=== PATIENT | male | born 1945 | race Caucasian/White ===

== ENCOUNTER → 2016-10-29 | Day surgery (SDC) | payer OTHER ==
[~2016-10-29] VITALS: Ht 180.3 cm; Wt 77.0 kg
[~2016-10-29] MED LIST: 0.9% Sodium Chloride 1,000 ML IV PRN; ASPI-973 PO; BUPR100T8 PO; LISI10TA PO; OMEP40CA36 PO; SIMV20TA4 PO; Sodium Chloride LOK Flush 10 mL Syringe IV PRN; fentaNYL-PF 50 mCg/mL 2 mL Inj IVPUSH PRN
[2016-10-29 08:22] VITALS: BP 148/98; PULSE 91; RESP 14; O2SAT 100
[2016-10-29 09:41] VITALS: BP 119/77; PULSE 60; RESP 16; O2SAT 93
[2016-10-29 09:51] VITALS: BP 128/76; PULSE 71; RESP 16; O2SAT 95
[2016-10-29 10:20] VITALS: BP 121/83; PULSE 59; RESP 16; O2SAT 97
--- NOTE | 2016-10-29 10:34 | ENDO ---
[address] [address] ENDOSCOPY PROCEDURE PATIENT: MARCO BAILEY : 1945 MR#: [id number] ADMIT: 10/29/2016 JOB ID: [id number] DATE OF SERVICE: 10/29/2016 PROCEDURE PERFORMED: Esophagogastroduodenoscopy. INDICATION: GERD and chest pain. ASA CLASSIFICATION: The patient's ASA classification is II. MALLAMPATI SCORE: Mallampati score is 2. MEDICATIONS: 1. Versed 4 mg. 2. Fentanyl 75 mcg. INSTRUMENT USED: GIF-Q180 upper endoscope. PROCEDURE DETAILS: After informed consent was obtained, the patient was brought into the GI suite, where he was placed on oxygen via nasal cannula and monitored with continuous pulse oximeter, telemetry, and blood pressure monitoring. A time-out was performed. Then, he was placed in the left lateral decubitus position, and medications were administered for sedation. A bite block was placed. A standard EGD scope was inserted through the bite block and advanced under direct visualization to the second portion of the duodenum without difficulty. FINDINGS: 1. Normal appearing duodenal bulb, first and second portions. 2. Normal appearing pylorus, antrum and gastric body. 3. Retroflexed views in the gastric body revealed normal appearing cardia and fundus. 4. Normal appearing GE junction with a regular Z-line at 43 cm. 5. Normal appearing esophagus. IMPRESSION: Normal esophagogastroduodenoscopy exam to second portion of duodenum. No findings to explain the patient's chest pain. RECOMMENDATIONS: 1. Manometry and pH testing. 2. Follow up in GI clinic after above testing. COMPLICATIONS: None. ESTIMATED BLOOD LOSS: Less than 5 mL.
--- NOTE | 2016-11-02 16:51 | PATH ---
SURGICAL PATHOLOGY Attending Physician:Sue Joy CASE STATUS: Signed Out PATIENT NAME: MARCO BAILEY PID: [id number] : 1945 DATE COLLECTED:10/29/2016 21:35 SPECIMEN: Gastric, Biopsy CLINICAL HISTORY: 1). RANDOM GASTRIC BIOPSY, RULE OUT H.PYLORI FINAL DIAGNOSIS: Random Stomach, Biopsies: Gastric antral and body mucosa with no diagnostic abnormality. Helicobacter organisms not identified. Negative for intestinal metaplasia, dysplasia or malignancy. ICD10: K21.0 GROSS DESCRIPTION: Received in formalin, labeled with the patient' s name and "gastric", are multiple fragments of [place], soft tissue ranging from 0.2 x 0.1 x 0.1 cm to 0.5 x 0.1 x 0.1 cm. The fragments are totally submitted in one cassette. ([id number]) ICD-9 CODES: CPT CODES: 1: 78116 Electronically Signed Out Chris Torres MD, Ph.D. [facility] [address], [place] [address] Technical component performed at [facility], [address] [place] [address] Ave[address], [place], [address]
== END | disposition home or self-care (01) ==
LOC: END 01:30
PROVIDERS: ATTEND Internal Medicine Gastroenterology
DX: K21.9 Gastro-esophageal reflux disease without esophagitis (principal); R07.9 Chest pain, unspecified; F32.9 Major depressive disorder, single episode, unspecified; Z87.891 Personal history of nicotine dependence
CPT/HCPCS: 43239; G0500; J2250; J3010; J7030